=== PATIENT | female | born 1970 | race Caucasian/White ===

== ENCOUNTER 2016-06-22 22:24 | Emergency (ER) | payer MEDICAID, OTHER ==
[2016-06-22 22:25] VITALS: BP 120/71
== END 2016-06-22 23:45 | disposition left against medical advice (07) ==
LOC: ER 22:24
DX: Z53.21 Procedure and treatment not carried out due to patient leaving prior to being seen by health care provider (principal)

== ENCOUNTER 2016-08-26 06:18 | Emergency (ER) | payer OTHER ==
[2016-08-26 06:33] VITALS: BP 129/73
--- NOTE | 2016-08-26 06:54 | ERNOTE ---
Upper Extremity HPI - Narrative Date of Service: 08/26/16 - ARTHRITIS - General Extremities Pain Location: wrist: left Time Seen by Provider: 08/26/16 06:51 Source: patient Exam Limitations: no limitations - Immun/Allergies/Home Medications Immunizations: IMMUNIZATION HX Immunizations Up to Date Yes History of Influenza Vaccine Yes Hx Pneumococcal Vaccination Yes Allergies/Adverse Reactions: Allergies Allergy/AdvReac Type Severity Reaction Status Date / Time No Known Allergies Allergy Verified 08/26/16 06:32 Home Medications: HOME MEDICATIONS predniSONE [Prednisone] 10 mg PO BID 07/10/13 [Last Taken 08/02/13 10 MG] Etanercept [Enbrel] 50 mg SQ ONCE 08/26/16 [Last Taken Unknown] traMADol HCL [Ultram] 50 mg PO Q6H PRN 08/26/16 [Last Taken Unknown] - History of Present Illness Narrative: PT SAYS SHE BEGAN TO HAVE INCREASED SWELLING AND SORENESS AND ERYTHEMA TO HER RIGHT HAND 3-4 DAYS AGO. SHE STATES SHE HAS RHEUMATOID ARTHRITIS AND HAS BEEN TAKING HER USUAL MEDS UNTIL THEN WHEN SHE DECIDED TO INCREASE HER PREDNISONE WHICH SHE SAYS WILL USUALLY HELP BUT THIS TIME DID NOT AND INSTEAD HER HAND GOT WORSE. SHE DID NOT CONTACT HER DOCTOR BECAUSE OF THE WEEKEND AND DECIDED TO COME HERE THIS MORNING INSTEAD. SHE DENIES ANY FEVER OR ANY KNOWN TRAUMA TO THE HAND BUT HAS NEVER HAD HER HAND SWELL LIKE THIS BEFORE. HER LEFT HAND IF ITS NORMAL SELF. Prior Treament: Denies: recently seen, similar symptoms before - Patient's Past Medical History Patient History - Medical: No pertinent hx Patient History - Cardiac/Respiratory: No pertinent hx Patient History - Cancer: No Hx of Cancer Patient History - Surgical Procedures: Total Hip Replacement Patient History - Other: None LMP (females 10-50): Menopausal - Social History Living Situations: significant other Abuse History: No History of abuse Psych History: No pertinent hx Smoking Status: Current every day smoker Drug Use: none - Immunizations Immunizations Up to Date: Yes Hx Pneumococcal Vaccination: Yes History of Influenza Vaccine: Yes Physical Exam - Physical Exam General Appearance: Present: wd/wn, moderate distress Extremity Exam: Present: other - PT HAS ERYTHEMA AND SWELLING AND PAIN TO RIGHT HAND . THERE IS EDEMA TO THE PROXIMAL BASE OF THE METACARPALS , 2-5 , NOTED MOST TO DORSUM OF THE HAND BUT SOME ON PALMAR SURFACE WELL. THE RIGHT HAND IS WARMER TO THE TOUCH THAN HER LEFT AND THE SKIN OF THE RIGHT HAND IS SL. THICKENED AND SHINY. THERE IS NO SIGN OF BREAK IN THE SKIN . THE ERYTHEMA AND SWELLING STOP AND THE WRIST. SHE HAS GOOD REFILL TO THE HAND. SHE HOLD THE RIGHT HAND WITH FINGERS PARTIALLY FLEXED. 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 WHEN I WENT TO ORDER THE XRAY SHE CAME OUT OF HER ROOM AND SAID SHE DECIDED TO TO SEE HER ORTHO SPECIALIST IN [place] . - Vital Signs Vital Signs: Vital Signs 08/26/16 06:25 Temperature 36.4 C L Pulse Rate 83 Respiratory 14 Rate Blood Pressure 129/73 O2 Sat by Pulse 99 Oximetry - Progress/Reassessment Chief Complaint: Upper Extremity Injury/Problem Departure Clinical Impression: Arthritis - Departure Disposition: Home Follow Up Needed Instructions: Arthritis Additional Instructions: PT WILL RECHECK WITH HER ARTHRITIS DR RATHER THAN HAVE ME CHECK HER HAND HERE.
--- OUTSIDE RECORDS SUMMARY | 2016-08-26 07:08 | XMS REPORT | Summary of Care ---
:1970 Author Organization [facility] Address [address] [place] [address] Care Team Providers Name Role Phone Skywu Dereckroxaneesperanza Primary Care Physician Encounter Date(s): 06/20/16 - 06/20/16 [facility] [address], [address], [place] [address] Discharge Disposition: 01 Discharged to Home or Self Care Attending Physician: Alvaro Lucia MD Vital Signs No data available for this section Problem List Condition Effective Dates Status Health Status Informant Hepatitis NOS(Confirmed) Active Allergies, Adverse Reactions, Alerts No Known Medication Allergies Medications Enbrel Prefilled Syringe 50 mg/mL subcutaneous solution 1 mL, Subcutaneous, q7days, # 8 EA, 2 Refill(s), Start Date: 06/22/14 11:52:00 [employer], Pharmacy: [place], [place] Start Date: 06/22/14 Stop Date: 11/08/14 Status: CompletedEnbrel Prefilled Syringe 50 mg/mL subcutaneous solution 1 mL, Subcutaneous, q7days, # 8 EA, 8 Refill(s), Start Date: 04/27/15 14:47:00 [employer], called to pharmacy (Rx) Start Date: 04/27/15 Status: OrderedEnbrel Prefilled Syringe 50 mg/mL subcutaneous solution 50 mg, Subcutaneous, q7days, # 12 syringe(s), 3 Refill(s), Start Date: 04/03/15 12:03:53 [employer], Pharmacy: [place], [place] Start Date: 04/03/15 Stop Date: 04/05/15 Status: CompletedEnbrel Prefilled Syringe 50 mg/mL subcutaneous solution 50 mg, Subcutaneous, q7days, # 12 syringe(s), 3 Refill(s), Start Date: 11/09/14 10:09:00 CDT, Pharmacy: [place], [place] Start Date: 11/09/14 Stop Date: 04/03/15 Status: CompletedEnbrel SureClick 50 mg/mL subcutaneous solution 1 mL, Subcutaneous, q7days, # 8 EA, 0 Refill(s), Start Date: 04/05/15 10:46:00 [employer], Pharmacy: [place], [place] Start Date: 04/05/15 Stop Date: 04/27/15 Status: CompletedEnbrel SureClick 50 mg/mL subcutaneous solution 1 mL, Subcutaneous, q7days, # 8 EA, 2 Refill(s), Start Date: 04/14/14 12:50:00 [employer], Pharmacy: [place], [place] Start Date: 04/14/14 Stop Date: 06/22/14 Status: Discontinuedesomeprazole 20 mg oral delayed release capsule 1 cap(s), Oral, Daily, 0 Refill(s) Start Date: 12/17/13 Stop Date: 06/22/14 Status: Discontinuedesomeprazole 20 mg oral delayed release capsule 1 cap(s), Oral, Daily, # 30 cap(s), 0 Refill(s), Start Date: 06/22/14 12:51:00 [employer], Pharmacy: [place], [place] Start Date: 06/22/14 Stop Date: 10/31/15 Status: CompletedHYDROcodone-acetaminophen 5 mg-325 mg oral tablet 1 tab(s), Oral, PRN prn, 0 Refill(s) Start Date: 12/17/13 Stop Date: 02/04/14 Status: DiscontinuedpredniSONE 10 mg oral tablet 2 tab(s), Oral, BID, 0 Refill(s) Start Date: 12/17/13 Stop Date: 03/06/15 Status: CompletedpredniSONE 5 mg oral tablet 1 tab(s), Oral, Daily, # 30 tab(s), 0 Refill(s), Start Date: 03/06/15 14:55:39 CDT, called to pharmacy (Rx) Start Date: 03/06/15 Stop Date: 05/29/15 Status: CompletedpredniSONE 5 mg oral tablet 1 tab(s), Oral, Daily, # 30 tab(s), 1 Refill(s), Start Date: 12/12/15 7:32:38 CDT, Pharmacy: [place], [place] Start Date: 12/12/15 Stop Date: 04/26/16 Status: CompletedpredniSONE 5 mg oral tablet 1 tab(s), Oral, BID, # 60 tab(s), 0 Refill(s), Start Date: 06/20/14 10:16:34 [employer] , Pharmacy: [place], [place] Start Date: 06/20/14 Stop Date: 03/06/15 Status: CompletedpredniSONE 5 mg oral tablet 1 tab(s), Oral, Daily, # 30 tab(s), 1 Refill(s), Start Date: 12/08/15 8:36:41 CDT, Pharmacy: [place], [place] Start Date: 12/08/15 Stop Date: 12/12/15 Status: CompletedpredniSONE 5 mg oral tablet See Instructions, 2 tabs daily for 10 days and 1 tab daily thereafter., # 40 tab (s), 0 Refill(s), Start Date: 01/03/15 13:33:28 CDT, Pharmacy: [place], [place] Start Date: 01/03/15 Stop Date: 03/06/15 Status: CompletedpredniSONE 5 mg oral tablet 1 tab(s), Oral, Daily, # 60 tab(s), 1 Refill(s), Start Date: 08/18/14 14:59:00 CDT, Pharmacy: [place], [place] Start Date: 08/18/14 Stop Date: 03/06/15 Status: CompletedpredniSONE 5 mg oral tablet 1 tab(s), Oral, Daily, # 30 tab(s), 0 Refill(s), Start Date: 05/29/15 10:52:23 [employer], Pharmacy: [facility], [place] Start Date: 05/29/15 Stop Date: 07/17/15 Status: CompletedpredniSONE 5 mg oral tablet 1 tab(s), Oral, Daily, Pt needs a appt., # 30 tab(s), 1 Refill(s), Start Date: 12/08/15 8:35:52 CDT, Pharmacy: [place], [place] Start Date: 12/08/15 Stop Date: 12/08/15 Status: CompletedpredniSONE 5 mg oral tablet 1 tab(s), Oral, Daily, Pt needs a appt., X 14 days, # 14 tab(s), 0 Refill(s), Start Date: 10/06/15 8:22:20 CDT, Pharmacy: [place], [place] Start Date: 10/06/15 Stop Date: 12/08/15 Status: CompletedpredniSONE 5 mg oral tablet 1 tab(s), Oral, Daily, # 14 tab(s), 0 Refill(s), Start Date: 04/26/16 13:47:58 [employer], Pharmacy: [place], [place] Start Date: 04/26/16 Stop Date: 05/10/16 Status: OrderedpredniSONE 5 mg oral tablet 1 tab(s), Oral, Daily, Take 1 tab daily with 1-10mg tab to equal 15mg daily for 2 weeks, # 14 tab(s), 0 Refill(s), Start Date: 05/05/14 15:29:00 [employer], Pharmacy: [place], [place] Start Date: 05/05/14 Stop Date: 06/20/14 Status: CompletedpredniSONE 5 mg oral tablet See Instructions, 2 tabs daily for 10 days and 1 tab daily thereafter., # 40 tab (s), 0 Refill(s), Start Date: 11/09/14 10:14:00 CDT, Pharmacy: [place], [place] Start Date: 11/09/14 Stop Date: 01/03/15 Status: CompletedpredniSONE 5 mg oral tablet 1 tab(s), Oral, Daily, # 30 tab(s), 1 Refill(s), Start Date: 07/17/15 10:10:06 [employer], Pharmacy: [place], [place] Start Date: 07/17/15 Stop Date: 10/06/15 Status: CompletedsulfaSALAzine 500 mg oral tablet 1 tab(s), Oral, BID, 0 Refill(s) Start Date: 12/17/13 Stop Date: 06/22/14 Status: CompletedtraMADol 50 mg oral tablet 1 tab(s), Oral, BID, # 180 tab(s), 3 Refill(s), Start Date: 03/06/15 14:55:51 CDT, called to pharmacy (Rx) Start Date: 03/06/15 Stop Date: 06/15/15 Status: CompletedtraMADol 50 mg oral tablet 1 tab(s), Oral, BID, # 180 tab(s), 1 Refill(s), Start Date: 06/15/15 10:29:11 [employer], called to pharmacy (Rx) Start Date: 06/15/15 Stop Date: 10/31/15 Status: CompletedtraMADol 50 mg oral tablet 1 tab(s), Oral, BID, # 180 tab(s), 0 Refill(s), Start Date: 08/22/14 11:18:35 CDT, called to pharmacy (Rx) Start Date: 08/22/14 Stop Date: 03/06/15 Status: CompletedtraMADol 50 mg oral tablet 1 tab(s), Oral, BID, PRN pain moderate 4-7, # 60 tab(s), 0 Refill(s), Start Date : 12/08/15 8:37:03 CDT, called to pharmacy (Rx) Start Date: 12/08/15 Stop Date: 01/09/16 Status: CompletedtraMADol 50 mg oral tablet 1 tab(s), Oral, q6hr interval, 0 Refill(s) Start Date: 12/17/13 Stop Date: 02/04/14 Status: DiscontinuedtraMADol 50 mg oral tablet 1 tab(s), Oral, BID, # 60 tab(s), 0 Refill(s), Start Date: 03/24/14 9:30:55 CDT , called to pharmacy (Rx) Start Date: 03/24/14 Stop Date: 08/22/14 Status: CompletedtraMADol 50 mg oral tablet 1 tab(s), Oral, BID, PRN pain moderate 4-7, # 28 tab(s), 0 Refill(s), Start Date : 04/26/16 13:48:24 [employer], called to pharmacy (Rx) Start Date: 04/26/16 Stop Date: 05/10/16 Status: OrderedtraMADol 50 mg oral tablet 1 tab(s), Oral, q8hr interval, # 42 tab(s), 0 Refill(s), Start Date: 02/25/14 12 :09:00 CDT, called to pharmacy (Rx) Start Date: 02/25/14 Stop Date: 03/24/14 Status: CompletedtraMADol 50 mg oral tablet 1 tab(s), Oral, BID, PRN pain moderate 4-7, # 60 tab(s), 0 Refill(s), Start Date : 07/17/15 10:11:00 [employer], called to pharmacy (Rx) Start Date: 07/17/15 Stop Date: 12/08/15 Status: CompletedtraMADol 50 mg oral tablet 1 tab(s), Oral, q6hr interval, # 120 tab(s), 0 Refill(s) Start Date: 02/04/14 Stop Date: 02/25/14 Status: CompletedtraMADol 50 mg oral tablet 1 tab(s), Oral, BID, PRN pain moderate 4-7, # 60 tab(s), 0 Refill(s), Start Date : 01/09/16 7:46:53 CDT, called to pharmacy (Rx) Start Date: 01/09/16 Stop Date: 04/26/16 Status: CompletedXeljanz 5 mg oral tablet 1 tab(s), Oral, BID, # 180 tab(s), 3 Refill(s), Start Date: 09/07/14 14:58:00 CDT, Pharmacy: [place], [place] Start Date: 09/07/14 Stop Date: 03/28/15 Status: Completed Results No data available for this section Immunizations No data available for this section Procedures Procedure Date Related Diagnosis Body Site Knee replacement 11/03/13 Knee replacement 08/24/13 Hip replacement 08/03/13 Social History No data available for this section Assessment and Plan No data available for this section
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
--- OUTSIDE RECORDS SUMMARY | 2016-08-26 07:09 | XMS REPORT | Summary of Care ---
:1970 Author Organization [facility] Address [address] [place] [address] Care Team Providers Name Role Phone JanejuliocesarBhargavi Primary Care Physician Encounter Date(s): 06/24/16 - 06/24/16 [facility] Catherine Valentine, [address] [place], [place] [address] Discharge Diagnosis: Arthritis, rheumatoid Discharge Disposition: Discharged to Home or Self Care Attending Physician: Alvaro Lucia MD Referring Physician: Unknown Physician Vital Signs No data available for this section Problem List Condition Effective Dates Status Health Status Informant Hepatitis NOS(Confirmed) Active Allergies, Adverse Reactions, Alerts No Known Medication Allergies Medications Enbrel Prefilled Syringe 50 mg/mL subcutaneous solution 1 mL, Subcutaneous, q7days, # 8 EA, 2 Refill(s), Start Date: 06/22/14 11:52:00 JEWEL GAUGER, Pharmacy: [place], [place] Start Date: 06/22/14 Stop Date: 11/08/14 Status: CompletedEnbrel Prefilled Syringe 50 mg/mL subcutaneous solution 1 mL, Subcutaneous, q7days, # 8 EA, 8 Refill(s), Start Date: 04/27/15 14:47:00 JEWEL GAUGER, called to pharmacy (Rx) Start Date: 04/27/15 Stop Date: 06/24/16 Status: CompletedEnbrel Prefilled Syringe 50 mg/mL subcutaneous solution 1 mL, Subcutaneous, qWeek, # 4 EA, 2 Refill(s), Start Date: 06/24/16 15:32:00 JEWEL GAUGER, Pharmacy: [place], [place] Start Date: 06/24/16 Status: OrderedEnbrel Prefilled Syringe 50 mg/mL subcutaneous solution 50 mg, Subcutaneous, q7days, # 12 syringe(s), 3 Refill(s), Start Date: 04/03/15 12:03:53 JEWEL GAUGER, Pharmacy: [place] Start Date: 04/03/15 Stop Date: 04/05/15 Status: CompletedEnbrel Prefilled Syringe 50 mg/mL subcutaneous solution 50 mg, Subcutaneous, q7days, # 12 syringe(s), 3 Refill(s), Start Date: 11/09/14 10:09:00 CDT, Pharmacy: [place] Start Date: 11/09/14 Stop Date: 04/03/15 Status: CompletedEnbrel SureClick 50 mg/mL subcutaneous solution 1 mL, Subcutaneous, q7days, # 8 EA, 0 Refill(s), Start Date: 04/05/15 10:46:00 JEWEL GAUGER, Pharmacy: [place] Start Date: 04/05/15 Stop Date: 04/27/15 Status: CompletedEnbrel SureClick 50 mg/mL subcutaneous solution 1 mL, Subcutaneous, q7days, # 8 EA, 2 Refill(s), Start Date: 04/14/14 12:50:00 JEWEL GAUGER, Pharmacy: [facility], [place] Start Date: 04/14/14 Stop Date: 06/22/14 Status: Discontinuedesomeprazole 20 mg oral delayed release capsule 1 cap(s), Oral, Daily, 0 Refill(s) Start Date: 12/17/13 Stop Date: 06/22/14 Status: Discontinuedesomeprazole 20 mg oral delayed release capsule 1 cap(s), Oral, Daily, # 30 cap(s), 0 Refill(s), Start Date: 06/22/14 12:51:00 JEWEL GAUGER, Pharmacy: [facility], [place] Start Date: 06/22/14 Stop Date: 10/31/15 Status: CompletedHYDROcodone-acetaminophen 5 mg-325 mg oral tablet 1 tab(s), Oral, PRN prn, 0 Refill(s) Start Date: 12/17/13 Stop Date: 02/04/14 Status: DiscontinuedpredniSONE 12.5 mg, Oral, Daily, 0 Refill(s), Start Date: 06/24/16 15:11:00 JEWEL GAUGER Start Date: 06/24/16 Stop Date: 06/24/16 Status: CompletedpredniSONE 10 mg oral tablet 2 tab(s), Oral, [...] Refill(s), Start Date: 12/12/15 7:32:38 CDT, Pharmacy: [place] Start Date: 12/12/15 Stop Date: 04/26/16 Status: CompletedpredniSONE 5 mg oral tablet 1 tab(s), Oral, BID, # 60 tab(s), 0 Refill(s), Start Date: 06/20/14 10:16:34 JEWEL GAUGER , Pharmacy: [facility], [place] Start Date: 06/20/14 Stop Date: 03/06/15 Status: CompletedpredniSONE 5 mg oral tablet 1 tab(s), Oral, Daily, # 30 tab(s), 1 Refill(s), Start Date: 12/08/15 8:36:41 CDT, Pharmacy: [place] Start Date: 12/08/15 Stop Date: 12/12/15 Status: CompletedpredniSONE 5 mg oral tablet See Instructions, 2 tabs daily for 10 days and 1 tab daily thereafter., # 40 tab (s), 0 Refill(s), Start Date: 01/03/15 13:33:28 CDT, Pharmacy: [place] Start Date: 01/03/15 Stop Date: 03/06/15 Status: CompletedpredniSONE 5 mg oral tablet 1 tab(s), Oral, Daily, # 60 tab(s), 1 Refill(s), Start Date: 08/18/14 14:59:00 CDT, Pharmacy: [place] Start Date: 08/18/14 Stop Date: 03/06/15 Status: CompletedpredniSONE 5 mg oral tablet 1 tab(s), Oral, Daily, # 30 tab(s), 0 Refill(s), Start Date: 05/29/15 10:52:23 JEWEL GAUGER, Pharmacy: [place] Start Date: 05/29/15 Stop Date: 07/17/15 Status: CompletedpredniSONE 5 mg oral tablet 1 tab(s), Oral, Daily, Pt needs a appt., # 30 tab(s), 1 Refill(s), Start Date: 12/08/15 8:35:52 CDT, Pharmacy: [place] Start Date: 12/08/15 Stop Date: 12/08/15 Status: CompletedpredniSONE 5 mg oral tablet 2 tab(s), Oral, Daily, Take 2 tabs daily for 30 days, then 1 tab daily there after, # 60 tab(s), 0 Refill(s), Start Date: 06/24/16 15:31:00 JEWEL GAUGER, Pharmacy: [place] Start Date: 06/24/16 Status: OrderedpredniSONE 5 mg oral tablet 1 tab(s), Oral, Daily, Pt needs a appt., X 14 days, # 14 tab(s), 0 Refill(s), Start Date: 10/06/15 8:22:20 CDT, Pharmacy: [place] Start Date: 10/06/15 Stop Date: 12/08/15 Status: CompletedpredniSONE 5 mg oral tablet 1 tab(s), Oral, Daily, # 14 tab(s), 0 Refill(s), Start Date: 04/26/16 13:47:58 JEWEL GAUGER, Pharmacy: [place] Start Date: 04/26/16 Stop Date: 06/24/16 Status: CompletedpredniSONE 5 mg oral tablet 1 tab(s), Oral, Daily, Take 1 tab daily with 1-10mg tab to equal 15mg daily for 2 weeks, # 14 tab(s), 0 Refill(s), Start Date: 05/05/14 15:29:00 JEWEL GAUGER, Pharmacy: [place] Start Date: 05/05/14 Stop Date: 06/20/14 Status: CompletedpredniSONE 5 mg oral tablet See Instructions, 2 tabs daily for 10 days and 1 tab daily thereafter., # 40 tab (s), 0 Refill(s), Start Date: 11/09/14 10:14:00 CDT, Pharmacy: [place] Start Date: 11/09/14 Stop Date: 01/03/15 Status: CompletedpredniSONE 5 mg oral tablet 1 tab(s), Oral, Daily, # 30 tab(s), 1 Refill(s), Start Date: 07/17/15 10:10:06 JEWEL GAUGER, Pharmacy: [place] Start Date: 07/17/15 Stop Date: 10/06/15 [...] tab(s), 1 Refill(s), Start Date: 06/15/15 10:29:11 JEWEL GAUGER, called to pharmacy (Rx) Start Date: 06/15/15 [...] 0 Refill(s), Start Date : 04/26/16 13:48:24 JEWEL GAUGER, called to pharmacy (Rx) Start Date: 04/26/16 Stop Date: 06/24/16 Status: CompletedtraMADol 50 mg oral tablet 1 tab(s), Oral, q8hr interval, # 42 tab(s), 0 Refill(s), Start Date: 02/25/14 12 :09:00 CDT, called to pharmacy (Rx) Start Date: 02/25/14 Stop Date: 03/24/14 Status: CompletedtraMADol 50 mg oral tablet 1 tab(s), Oral, BID, PRN pain moderate 4-7, # 60 tab(s), 0 Refill(s), Start Date : 07/17/15 10:11:00 JEWEL GAUGER, called to pharmacy (Rx) Start Date: 07/17/15 Stop Date: 12/08/15 Status: CompletedtraMADol 50 mg oral tablet 1 tab(s), Oral, BID, PRN pain moderate 4-7, # 60 tab(s), 0 Refill(s), Start Date : 06/24/16 15:33:00 JEWEL GAUGER, called to pharmacy (Rx) Start Date: 06/24/16 Status: OrderedtraMADol 50 mg oral tablet 1 [...] Refill(s), Start Date: 09/07/14 14:58:00 CDT, [place] Start Date: 09/07/14 Stop Date: 03/28/15 Status: Completed Results No data available for this section Immunizations No data available for this section Procedures Procedure Date Related Diagnosis Body Site Knee replacement 11/03/13 Knee replacement 08/24/13 Hip replacement 08/03/13 Social History No data available for this section Assessment and Plan No data available for this section
--- OUTSIDE RECORDS SUMMARY | 2016-08-26 07:09 | XMS REPORT | Summary of Care ---
:1970 Author Organization [facility] Address [address] [place] [address] Care Team Providers Name Role Phone Bhargavi Drew Primary Care Physician Encounter Date(s): 10/31/15 - 10/31/15 [facility] Catherine Valentine, [address] [place], [place] [address] Discharge Disposition: 01 Discharged to Home or Self Care Attending Physician: Alvaro Lucia MD Referring Physician: Alvaro Lucia MD Vital Signs Most recent to oldest [Reference Range]: 1 Peripheral Pulse Rate [60-100 bpm] 76 bpm (10/31/15 11:00 AM) Blood Pressure [90-130/60-90 mmHg] 122/80mmHg (10/31/15 11:00 AM) Mean Arterial Pressure, Cuff 94 mmHg (10/31/15 11:00 AM) Most recent to oldest [Reference Range]: 1 Height/Length Measured 162.56 cm (10/31/15 11:00 AM) Weight Dosing 58.00 kg1 (10/31/15 11:03 AM) Weight Measured 58 kg (10/31/15 11:00 AM) BSA Measured 1.62 m2 (10/31/15 11:00 AM) Body Mass Index Measured 21.95 kg/m2 (10/31/15 11:00 AM) 1Result Comment: This result was because the dosing weight was either not entered or it is>30 days old. This result is based off: Weight Measured October 31, 2015 11:00:00 CDT by Rosie Araujo CMA Problem List Condition Effective Dates Status Health Status Informant Hepatitis NOS(Confirmed) Active Allergies, Adverse Reactions, Alerts No Known Medication Allergies Medications Enbrel Prefilled Syringe 50 mg/mL subcutaneous solution 1 mL, Subcutaneous, q7days, # 8 EA, 2 Refill(s), Start Date: 06/22/14 11:52:00 TEAM DRIVER, Pharmacy: [place], [place] Start Date: 06/22/14 Stop Date: 11/08/14 Status: CompletedEnbrel Prefilled Syringe 50 mg/mL subcutaneous solution 1 mL, Subcutaneous, q7days, # 8 EA, 8 Refill(s), Start Date: 04/27/15 14:47:00 TEAM DRIVER, called to pharmacy (Rx) Start Date: 04/27/15 Status: OrderedEnbrel Prefilled Syringe 50 mg/mL subcutaneous solution 50 mg, Subcutaneous, q7days, # 12 syringe(s), 3 Refill(s), Start Date: 04/03/15 12:03:53 TEAM DRIVER, Pharmacy: [facility], [place] Start Date: 04/03/15 Stop Date: 04/05/15 Status: CompletedEnbrel Prefilled Syringe 50 mg/mL subcutaneous solution 50 mg, Subcutaneous, q7days, # 12 syringe(s), 3 Refill(s), Start Date: 11/09/14 10:09:00 CDT, Pharmacy: [place], [place] Start Date: 11/09/14 Stop Date: 04/03/15 Status: CompletedEnbrel SureClick 50 mg/mL subcutaneous solution 1 mL, Subcutaneous, q7days, # 8 EA, 0 Refill(s), Start Date: 04/05/15 10:46:00 TEAM DRIVER, Pharmacy: [place], [place] Start Date: 04/05/15 Stop Date: 04/27/15 Status: CompletedEnbrel SureClick 50 mg/mL subcutaneous solution 1 mL, Subcutaneous, q7days, # 8 EA, 2 Refill(s), Start Date: 04/14/14 12:50:00 TEAM DRIVER, Pharmacy: [facility], [place] Start Date: 04/14/14 Stop Date: 06/22/14 Status: Discontinuedesomeprazole 20 mg oral delayed release capsule 1 cap(s), Oral, Daily, 0 Refill(s) Start Date: 12/17/13 Stop Date: 06/22/14 Status: Discontinuedesomeprazole 20 mg oral delayed release capsule 1 cap(s), Oral, Daily, # 30 cap(s), 0 Refill(s), Start Date: 06/22/14 12:51:00 TEAM DRIVER, Pharmacy: [place], [place] Start Date: 06/22/14 Stop Date: 10/31/15 Status: CompletedHYDROcodone-acetaminophen 5 mg-325 mg oral tablet 1 tab(s), Oral, PRN prn, 0 Refill(s) Start Date: 12/17/13 Stop Date: 02/04/14 Status: DiscontinuedKenalog (office) 40 units, Intra-articular, ONETIME, First Dose: 10/31/15 12:00:00 CDT, Stop Date : 10/31/15 12:00:00 CDT Start Date: 10/31/15 Stop Date: 10/31/15 Status: CompletedpredniSONE 10 mg oral tablet 2 [...] tab(s), 0 Refill(s), Start Date: 06/20/14 10:16:34 TEAM DRIVER , Pharmacy: [place], [place] Start Date: 06/20/14 Stop Date: 03/06/15 Status: CompletedpredniSONE 5 mg oral tablet See Instructions, 2 tabs daily for 10 days and 1 tab daily thereafter., # 40 tab (s), 0 Refill(s), Start Date: 01/03/15 13:33:28 CDT, Pharmacy: [place], [place] Special Instructions: 2 tabs daily for 10 days and 1 tab daily thereafter. Start Date: 01/03/15 Stop Date: 03/06/15 Status: CompletedpredniSONE 5 mg oral tablet 1 tab(s), Oral, Daily, # 60 tab(s), 1 Refill(s), Start Date: 08/18/14 14:59:00 CDT, Pharmacy: [place], [place] Start Date: 08/18/14 Stop Date: 03/06/15 Status: CompletedpredniSONE 5 mg oral tablet 1 tab(s), Oral, Daily, # 30 tab(s), 0 Refill(s), Start Date: 05/29/15 10:52:23 TEAM DRIVER, Pharmacy: [place], [place] Start Date: 05/29/15 Stop Date: 07/17/15 Status: CompletedpredniSONE 5 mg oral tablet 1 tab(s), Oral, Daily, Pt needs a appt., # 14 tab(s), 0 Refill(s), Start Date: 10/06/15 8:22:20 CDT, Pharmacy: [place], [place] Special Instructions: Pt needs a appt. Start Date: 10/06/15 Stop Date: 10/20/15 Status: OrderedpredniSONE 5 mg oral tablet 1 tab(s), Oral, Daily, Take 1 tab daily with 1-10mg tab to equal 15mg daily for 2 weeks, # 14 tab(s), 0 Refill(s), Start Date: 05/05/14 15:29:00 TEAM DRIVER, Pharmacy: [place], [place] Special Instructions: Take 1 tab daily with 1-10mg tab to equal 15mg daily for 2 weeks Start Date: 05/05/14 Stop Date: 06/20/14 Status: CompletedpredniSONE 5 mg oral tablet See Instructions, 2 tabs daily for 10 days and 1 tab daily thereafter., # 40 tab (s), 0 Refill(s), Start Date: 11/09/14 10:14:00 CDT, Pharmacy: [place], [place] Special Instructions: 2 tabs daily for 10 days and 1 tab daily thereafter. Start Date: 11/09/14 Stop Date: 01/03/15 Status: CompletedpredniSONE 5 mg oral tablet 1 tab(s), Oral, Daily, # 30 tab(s), 1 Refill(s), Start Date: 07/17/15 10:10:06 TEAM DRIVER, Pharmacy: [place], [place] Start Date: 07/17/15 Stop Date: 10/06/15 [...] tab(s), 1 Refill(s), Start Date: 06/15/15 10:29:11 TEAM DRIVER, called to pharmacy (Rx) Start Date: 06/15/15 [...] 0 Refill(s), Start Date : 07/17/15 10:11:00 TEAM DRIVER, called to pharmacy (Rx) Start Date: 07/17/15 Status: OrderedtraMADol 50 mg oral tablet 1 tab(s), Oral, q6hr interval, # 120 tab(s), 0 Refill(s) Start Date: 02/04/14 Stop Date: 02/25/14 Status: CompletedXeljanz 5 mg oral tablet 1 tab(s), Oral, BID, # 180 tab(s), 3 Refill(s), Start Date: 09/07/14 14:58:00 CDT, Pharmacy: [facility] [place] Start Date: 09/07/14 Stop Date: 03/28/15 Status: Completed Results No data available for this section Immunizations No data available for this section Procedures Procedure Date Related Diagnosis Body Site Knee replacement 11/03/13 Knee replacement 08/24/13 Hip replacement 08/03/13 Social History No data available for this section Assessment and Plan No data available for this section
--- OUTSIDE RECORDS SUMMARY | 2016-08-26 07:09 | XMS REPORT | Summary of Care ---
:1970 Author Organization [facility] Address [address] [place] [address] Care Team Providers Name Role Phone Bhargavi Drew Primary Care Physician Encounter Date(s): 10/31/15 - 10/31/[address] [address] Final: Other specified rheumatoid arthritis, left hand Final: Other specified rheumatoid arthritis, right hand Final: Other specified rheumatoid arthritis, left wrist Final: Other specified rheumatoid arthritis, right wrist Discharge Disposition: Discharged to Home or Self Care Attending Physician: Alvaro Lucia MD Admitting Physician: Alvaro Lucia MD Vital Signs No data available for this section Problem List Condition Effective Dates Status Health Status Informant Hepatitis NOS(Confirmed) Active Allergies, Adverse Reactions, Alerts No Known Medication Allergies Medications Enbrel Prefilled Syringe 50 mg/mL subcutaneous solution 1 mL, Subcutaneous, q7days, # 8 EA, 2 Refill(s), Start Date: 06/22/14 11:52:00 CLIENT SERVER DEVELOPER, Pharmacy: [place], [place] Start Date: 06/22/14 Stop Date: 11/08/14 Status: CompletedEnbrel Prefilled Syringe 50 mg/mL subcutaneous solution 1 mL, Subcutaneous, q7days, # 8 EA, 8 Refill(s), Start Date: 04/27/15 14:47:00 CLIENT SERVER DEVELOPER, called to pharmacy (Rx) Start Date: 04/27/15 Status: OrderedEnbrel Prefilled Syringe 50 mg/mL subcutaneous solution 50 mg, Subcutaneous, q7days, # 12 syringe(s), 3 Refill(s), Start Date: 04/03/15 12:03:53 CLIENT SERVER DEVELOPER, Pharmacy: [place], [place] Start Date: 04/03/15 Stop Date: 04/05/15 Status: CompletedEnbrel Prefilled Syringe 50 mg/mL subcutaneous solution 50 mg, Subcutaneous, q7days, # 12 syringe(s), 3 Refill(s), Start Date: 11/09/14 10:09:00 CDT, Pharmacy: [place], [place] Start Date: 11/09/14 Stop Date: 04/03/15 Status: CompletedEnbrel SureClick 50 mg/mL subcutaneous solution 1 mL, Subcutaneous, q7days, # 8 EA, 0 Refill(s), Start Date: 04/05/15 10:46:00 CLIENT SERVER DEVELOPER, Pharmacy: [place], [place] Start Date: 04/05/15 Stop Date: 04/27/15 Status: CompletedEnbrel SureClick 50 mg/mL subcutaneous solution 1 mL, Subcutaneous, q7days, # 8 EA, 2 Refill(s), Start Date: 04/14/14 12:50:00 CLIENT SERVER DEVELOPER, Pharmacy: [place], [place] Start Date: 04/14/14 Stop Date: 06/22/14 Status: Discontinuedesomeprazole 20 mg oral delayed release capsule 1 cap(s), Oral, Daily, 0 Refill(s) Start Date: 12/17/13 Stop Date: 06/22/14 Status: Discontinuedesomeprazole 20 mg oral delayed release capsule 1 cap(s), Oral, Daily, # 30 cap(s), 0 Refill(s), Start Date: 06/22/14 12:51:00 CLIENT SERVER DEVELOPER, Pharmacy: [place], [place] Start Date: 06/22/14 Stop Date: 10/31/15 [...] tab(s), 0 Refill(s), Start Date: 06/20/14 10:16:34 CLIENT SERVER DEVELOPER , Pharmacy: [place], [place] Start Date: 06/20/14 Stop Date: 03/06/15 Status: CompletedpredniSONE 5 mg oral tablet See Instructions, 2 tabs daily for 10 days and 1 tab daily thereafter., # 40 tab (s), 0 Refill(s), Start Date: 01/03/15 13:33:28 CDT, Pharmacy: [place], [place] Special Instructions: 2 tabs daily for 10 days and 1 tab daily thereafter. Start Date: 01/03/15 Stop Date: 03/06/15 Status: CompletedpredniSONE 5 mg oral tablet 1 tab(s), Oral, Daily, # 60 tab(s), 1 Refill(s), Start Date: 08/18/14 14:59:00 CDT, Pharmacy: [place], [place] Start Date: 08/18/14 Stop Date: 03/06/15 Status: CompletedpredniSONE 5 mg oral tablet 1 tab(s), Oral, Daily, # 30 tab(s), 0 Refill(s), Start Date: 05/29/15 10:52:23 CLIENT SERVER DEVELOPER, Pharmacy: [place], [place] Start Date: 05/29/15 Stop Date: 07/17/15 Status: CompletedpredniSONE 5 mg oral tablet 1 tab(s), Oral, Daily, Pt needs a appt., # 14 tab(s), 0 Refill(s), Start Date: 10/06/15 8:22:20 CDT, Pharmacy: [place], [place] Special Instructions: Pt needs a appt. Start Date: 10/06/15 Stop Date: 10/20/15 Status: OrderedpredniSONE 5 mg oral tablet 1 tab(s), Oral, Daily, Take 1 tab daily with 1-10mg tab to equal 15mg daily for 2 weeks, # 14 tab(s), 0 Refill(s), Start Date: 05/05/14 15:29:00 CLIENT SERVER DEVELOPER, Pharmacy: [place], [place] Special Instructions: Take 1 tab daily with 1-10mg tab to equal 15mg daily for 2 weeks Start Date: 05/05/14 Stop Date: 06/20/14 Status: CompletedpredniSONE 5 mg oral tablet See Instructions, 2 tabs daily for 10 days and 1 tab daily thereafter., # 40 tab (s), 0 Refill(s), Start Date: 11/09/14 10:14:00 CDT, Pharmacy: [place], [place] Special Instructions: 2 tabs daily for 10 days and 1 tab daily thereafter. Start Date: 11/09/14 Stop Date: 01/03/15 Status: CompletedpredniSONE 5 mg oral tablet 1 tab(s), Oral, Daily, # 30 tab(s), 1 Refill(s), Start Date: 07/17/15 10:10:06 CLIENT SERVER DEVELOPER, Pharmacy: [place], [place] Start Date: 07/17/15 Stop Date: 10/06/15 [...] tab(s), 1 Refill(s), Start Date: 06/15/15 10:29:11 CLIENT SERVER DEVELOPER, called to pharmacy (Rx) Start Date: 06/15/15 [...] 0 Refill(s), Start Date : 07/17/15 10:11:00 CLIENT SERVER DEVELOPER, called to pharmacy (Rx) Start Date: 07/17/15 Status: OrderedtraMADol 50 mg oral tablet 1 tab(s), Oral, q6hr interval, # 120 tab(s), 0 Refill(s) Start Date: 02/04/14 Stop Date: 02/25/14 Status: CompletedXeljanz 5 mg oral tablet 1 tab(s), Oral, BID, # 180 tab(s), 3 Refill(s), Start Date: 09/07/14 14:58:00 CDT, [place]acy: [place] Start Date: 09/07/14 Stop Date: 03/28/15 Status: Completed Results Patient Viewable Results Most recent to oldest [Reference Range]: 1 WBC [4.8-10.8 thou/mm3] 9.6 thou/mm3 (10/31/15 11:51 AM) RBC [4.20-5.40 Mil/mm3] 4.71 Mil/mm3 (10/31/15 11:51 AM) Hgb [12.0-16.0 g/dL] 14.5 g/dL (10/31/15 11:51 AM) Hct [37.0-47.0 %] 44.0 % (10/31/15 11:51 AM) MCV [80.0-94.0 fL] 93.4 fL (10/31/1551 AM) MCH [25.0-38.0 pg/cell] 30.8 pg/cell (10/31/15 1151 AM) MCHC [31.0-37.0 g/dL] 33.0 g/dL (10/31/15 1151 AM) RDW [1.0-48.0 fL] 48.4 fL *HI* (10/31/1551 AM) Platelet [130-400 thou/mm3] 298 thou/mm3 (10/31/15 11:51 AM) Neutrophils % Auto [50.0-75.0 %] 54.0 % (10/31/15:51 AM) Immature Granulocyte Auto [0.1-2.0 %] 0.3 % (10/31/15 11:51 AM) Lymphocytes % Auto [15.0-41.0 %] 35.8 % (10/31/15 11:51 AM) Monocytes % Auto [2.0-10.0 %] 7.4 % (10/31/15 11:51 AM) Eosinophils % Auto [0.0-6.0 %] 2.3 % (10/31/15 11:51 AM) Basophil % Auto [0.0-1.0 %] 0.2 % (10/31/15 11:51 AM) Neutrophils Absolute [1.5-5.9 thou/mm3] 5.2 thou/mm3 (10/31/15 11:51 AM) Immature Gran Absolute [0.01-0.03 thou/mm3] 0.03 thou/mm3 (10/31/15 11:51 AM) Lymphocytes Absolute [1.5-4.0 thou/mm3] 3.4 thou/mm3 (10/31/15 11:51 AM) Monocytes Absolute [0.0-0.9 thou/mm3] 0.7 thou/mm3 (10/31/15 11:51 AM) Eosinophil Absolute [0.0-0.7 thou/mm3] 0.2 thou/mm3 (10/31/15 11:51 AM) Basophil Absolute [0.0-0.2 thou/mm3] 0.0 thou/mm3 (10/31/15 11:51 AM) Sed Rate [0-20 mm/hr] 24 mm/hr *HI* (10/31/15 11:51 AM) Creatinine Lvl [0.50-1.20 mg/dL] 0.57 mg/dL (10/31/15 11:51 AM) eGFR AA [>=60] >60 (10/31/15 11:51 AM) eGFR RASHEEDA [>=60] >60 (10/31/15 11:51 AM) Albumin Lvl [3.5-5.2 g/dL] 4.4 g/dL (10/31/15 11:51 AM) AST [0-39 unit/L] 26 unit/L (10/31/15 11:51 AM) ALT [0-40 unit/L] 24 unit/L (10/31/15 11:51 AM) C Reactive Protein [0.0-0.4 mg/dL] 0.2 mg/dL (10/31/15 11:51 AM) Estimated Creatinine Clearance 105.36 mL/min (10/31/15 3:06 PM) Immunizations No data available for this section Procedures Procedure Date Related Diagnosis Body Site Knee replacement 11/03/13 Knee replacement 08/24/13 Hip replacement 08/03/13 Social History No data available for this section Assessment and Plan No data available for this section
== END 2016-08-26 07:07 | disposition left against medical advice (07) ==
LOC: ER 06:18
DX: M13.831 Other specified arthritis, right wrist (principal); F17.200 Nicotine dependence, unspecified, uncomplicated